=== PATIENT | female | born 1990 | race Caucasian/White ===

== ENCOUNTER 2019-05-24 09:04 | Outpatient (CLI) | payer BC ==
[~2019-05-24] VITALS: Ht 149.9 cm; Wt 115.0 kg
[2019-05-24 09:56] VITALS: BP 130/82
[2019-05-24 10:27] VITALS: BP 141/79
[2019-05-24 10:48] LABS: HEMATOCRIT 36.9 % (36.0-47.0); HEMOGLOBIN 12.4 g/dl (12.0-15.5); MEAN CORPUSCULAR HEMOGLOBIN 30.2 pg (27.0-33.0); MEAN CORPUSCULAR HGB CONC 33.6 g/dl (32.0-36.5); PLATELET COUNT, AUTOMATED 281 10^3/uL (150-450); WHITE BLOOD COUNT 16.6 10^3/uL (4.0-10.0)
[2019-05-24 11:13] LABS: ALT/SGPT 22 U/L (12-78); BILIRUBIN,TOTAL 0.3 MG/DL (0.2-1.0); BLOOD UREA NITROGEN 9 MG/DL (7-18); CALCIUM LEVEL 8.3 MG/DL (8.5-10.1); CARBON DIOXIDE LEVEL 21 MEQ/L (21-32); CHLORIDE LEVEL 105 MEQ/L (98-107); CREATININE FOR GFR 0.59 MG/DL (0.55-1.30); GLOMERULAR FILTRATION RATE > 60.0 (>60); GLUCOSE, FASTING 83 MG/DL (70-100); POTASSIUM SERUM 3.8 MEQ/L (3.5-5.1); SODIUM LEVEL 136 MEQ/L (136-145); TOTAL PROTEIN 7.3 GM/DL (6.4-8.2)
[2019-05-24] MEDS: LR 1,000 ML IV SCH ×2 (11:28→13:53)
[2019-05-24 12:16] LABS: APPEARANCE, URINE CLEAR (CLEAR); BACTERIA, URINE AUTO 1+ (NEGATIVE); BILIRUBIN, URINE AUTO NEGATIVE (NEGATIVE); BLOOD, URINE BLOOD NEGATIVE (NEGATIVE); COLOR, URINE YELLOW (YELLOW); GLUCOSE, URINE (UA) AUTO NEGATIVE (NEGATIVE); KETONE, URINE AUTO 1+ mg/dL (NEGATIVE); LEUKOCYTE ESTERASE, URINE AUTO TRACE (NEGATIVE); MUCUS, URINE SMALL (NEGATIVE); NITRITE, URINE AUTO NEGATIVE (NEGATIVE); PROTEIN, URINE AUTO NEGATIVE (NEGATIVE); RBC, URINE AUTO 1 /HPF (0-3); SPECIFIC GRAVITY URINE AUTO 1.021 (1.002-1.035); SQUAMOUS EPITHELIAL CELL UR AU 6 /HPF (0-6); UROBILINOGEN, URINE AUTO 0.2 mg/dL (0.0-2.0); WBC, URINE AUTO 2 /HPF (0-3)
[2019-05-24 12:45] VITALS: BP 104/57
[2019-05-24] MEDS ORDERED: ONDANSETRON 4MG/2ML VIAL (J2405) IV ONE (12:45)
[2019-05-24] MEDS ORDERED: PERCOCET 5MG/325MG TAB PO ONE ×2 (12:45→15:00)
[2019-05-24 12:50] LABS: BASO # 0.1 10^3/uL (0.0-0.2); BASO % 0.3 % (0.0-1.0); EOS # 0.1 10^3/uL (0.0-0.5); EOS % 0.4 % (0.0-3.0); LYMPH # 1.9 10^3/uL (1.5-5.0); LYMPH % 11.2 % (24.0-44.0); MONO # 0.8 10^3/uL (0.0-0.8); MONO % 4.7 % (0.0-5.0); NEUTROPHILS # 13.8 10^3/uL (1.5-8.5); NEUTROPHILS % 82.6 % (36.0-66.0)
[2019-05-24] MEDS ORDERED: PRENTAB9 PO (13:12)
--- NOTE | 2019-05-24 13:52 | REP ---
Clinical: Right lower quadrant pain. Technique: Real time murillo scale ultrasound examination using linear and curved array transducers. Findings: Directed ultrasound examination of the right lower quadrant demonstrates normal right ovary. The appendix is not visualized. No free fluid. No adenopathy. Impression: No obvious evidence to suggest acute appendicitis. Electronically Signed by Mohsen Patton MD 05/24/2019 01:43 P
--- NOTE | 2019-05-24 13:55 | REP ---
Clinical: Pelvic pain cramping Comparison: None . Findings: Examination demonstrates a single live intrauterine in cephalic presentation. motion is identified by technologist. Placenta is noted posterior and grade I without evidence for placenta previa or abruption. Amniotic fluid volume is normal (BRITNI 17.4 cm) . Cervix measures 4.1 cm in length and appears closed. Nuchal cord cannot be excluded. FHR equals 141 beats per minute. Gestational age by LMP 27 weeks 5 days with CHRIS 08/18/2019. BRITNI: 17.4 cm (9.4 - 22.7) Umbilical cord SD ratio: 2.92 (2.60 - 4.00) Impression: Single live intrauterine in cephalic presentation. No evidence for placenta previa or abruption. Electronically Signed by Mohsen Patton MD 05/24/2019 01:46 P
== END 2019-05-24 17:08 | disposition home or self-care (01) ==
LOC: M LDO 09:04
PROVIDERS: ATTEND Obstetrics & Gynecology
DX: Z36.89 Encounter for other specified antenatal screening (principal); O26.893 Other specified pregnancy related conditions, third trimester; R10.30 Lower abdominal pain, unspecified; Z3A.28 28 weeks gestation of pregnancy
CPT/HCPCS: 36415; 59025; 76815; 76820; 76857; 80053; 81001; 82731; 85027; 87070; G0378; G0463